=== PATIENT | male | born 2000 | race Caucasian/White ===

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

== ENCOUNTER 2020-02-21 14:31 | Emergency (ER) | payer BC, MEDICAID ==
[~2020-02-21] VITALS: Ht 188 cm; Wt 105.0 kg
[2020-02-21 14:33] VITALS: BP 134/69
[2020-02-21] MEDS ORDERED: triamcinolone acetonide 40mg/ml inj IM ONE (15:35)
[2020-02-21] MEDS ORDERED: PRED20TA PO (16:08)
== END 2020-02-21 16:38 | disposition home or self-care (01) ==
LOC: ER 14:31
DX: L23.7 Allergic contact dermatitis due to plants, except food (principal); F12.90 Cannabis use, unspecified, uncomplicated; Z79.899 Other long term (current) drug therapy
CPT/HCPCS: 96372; 99283; J3301